=== PATIENT | female | born 1995 | race African-American/Black ===

== ENCOUNTER 2016-08-31 01:32 | Emergency (ER) | payer SELFPAY ==
--- NOTE | ~2016-08-31 | CT2 ---
[facility] A Service of [facility] & [facility] RADIOLOGY TEXT RESULTS PATIENT: ANG BEARD LOCATION: SED : [birth year] UNIT #: [id number] AGE: [address]: Andrew Benson MD SEX: F ORDER DR: [id number] [address] [address] [id number] E MR#: [id number] Acc #: [id number] NAME: ANG BEARD : 1995 SEX: F STUDY DATE/TIME: 08/31/2016 2:30 UNIT: SED ROOM: STUDY DESCRIPTION: CT Abd and Pelv W Cont Attending Physician: Andrew Benson M.D. Ordering Physician: Andrew Benson M.D. MEDICAL IMAGING REPORT This report is preliminary unless electronic signature is present. EXAM CT abdomen and pelvis with IV contrast COMPARISON None INDICATION 21-year-old female with right-sided pelvic pain tonight. Urinary incontinence for [address] exam was performed with one or more of the following radiation dose reduction techniques: automatic exposure control, adjustment of mA and/or kV according to patient size, and iterative reconstruction. FINDINGS Axial CT imaging of the abdomen and pelvis was performed after IV administration of 100 mL Isovue-370. Coronal and sagittal reformats were constructed. Thoracolumbar dextrocurvature perhaps reflecting scoliosis or positional in nature. No acute fractures or suspicious osseous lesions. No significant findings in the imaged lower chest. The liver, gallbladder, pancreas, spleen, adrenal glands and kidneys are within normal limits. No hydronephrosis or hydroureter. No renal or ureteral calculus. Urinary bladder is within normal limits. CT appearance of the uterus is unremarkable. No definite adnexal masses. There is a small amount free fluid, possibly physiologic in the pelvis. No evidence of bowel obstruction. The appendix is normal. No pneumoperitoneum. There is nonspecific fluid distension of the duodenum and proximal jejunum with tapering of the proximal jejunum to normal caliber. Proximal jejunum measures up to 2.9 cm at top limits of normal. Normal caliber of the abdominal aorta, with patency of its main branches. No evidence of venous STS. [facility] A Service of [facility] & [facility] RADIOLOGY TEXT RESULTS PATIENT: ANG BEARD LOCATION: SED : [birth year] UNIT #: [id number] AGE: [address]: Andrew Benson MD SEX: F ORDER DR: thrombosis. There are scattered mesenteric lymph nodes, measuring up to 7.0 mm short axis in the superior mesentery, not pathologically enlarged by CT size criteria and likely reactive. IMPRESSION 1. Small amount of free fluid the pelvis of uncertain etiology. This may possibly be physiologic. 2. Top normal caliber of fluid distended duodenum and the proximal jejunum without definite transition point. This may reflect normal peristalsis. Correlation is recommended to exclude any signs of possible obstruction which is thought unlikely but not entirely excluded. No other significant findings in the abdomen, pelvis or imaged lower chest. Dictated by... Justus Salazar M.D. THIS IS AN ELECTRONICALLY VERIFIED REPORT Justus Salazar M.D. at 09/02/2016 7:02 AM Angelo TD: 08/31/2016 09:11 JOB #: [id number] MEDICAL IMAGING REPORT
[~2016-08-31 01:32] MED LIST: LANTUS SOLOSTAR3 ML
[2016-08-31 01:50] LABS: BASOPHIL# 0.1 X10e3 (0-0.3); BASOPHIL% 0.9 % (0-2.5); EOSINOPHIL# 0.1 X10e3 (0-0.7); EOSINOPHIL% 1.2 % (0.0-7.0); HEMATOCRIT 36.3 % (35.0-45.0); HEMOGLOBIN 11.7 gm/dL (12.0-16.0); LYMPHOCYTE# 2.8 X10e3 (1.0-3.5); LYMPHOCYTE% 36.3 % (17.0-45.0); MEAN CELL VOLUME 76.4 FL (83-96); MEAN CORPUSCULAR HEMOGLOBIN 24.7 PG (28-34); MEAN CORPUSCULAR HGB CONC 32.3 g/dL (30-36); MEAN PLATELET VOLUME 10.4 FL (6.5-11.5); MONOCYTE# 0.8 X10e3 (0-1.0); MONOCYTE% 10.8 % (3.0-12.0); NEUTROPHIL# 3.9 X10e3 (1.5-7.1); NEUTROPHIL% 50.8 % (40-75); PLATELET COUNT 194 X10e3 (140-420); RED BLOOD COUNT 4.76 X10e (3.90-5.30); RED CELL DISTRIBUTION WIDTH 16.4 % (11.0-15.5); WHITE BLOOD COUNT 7.6 X10e3 (4.0-10.5)
[2016-08-31 01:51] LABS: DIFF IND NO
[2016-08-31 01:57] LABS: PROTHROMBIN TIME (PATIENT) 11.6 SECONDS (9.5-12.4)
[2016-08-31 02:04] LABS: PARTIAL THROMBOPLASTIN TIME 26.2 SECONDS (25.6-38.1)
[2016-08-31 02:05] LABS: ALBUMIN SERUM 4.4 g/dL (3.5-5.0); ALKALINE PHOSPHATASE 74 U/L (32-92); ALT (SGPT) 236 U/L (10-40); AST (SGOT) 257 U/L (10-42); BILIRUBIN,TOTAL 0.5 mg/dL (0.2-2.0); BLOOD UREA NITROGEN 11 mg/dL (9-23); BUN/CREATININE RATIO 18.33; CALCIUM SERUM 9.9 mg/dL (8.4-10.2); CARBON DIOXIDE 24 mmol/L (22-31); CHLORIDE 96 mmol/L (100-111); CREATININE SERUM 0.6 mg/dL (0.6-1.4); GLOM FILT RATE Estimated ABOVE60 mL/min (>60); GLUCOSE FASTING 449 mg/dL (70-110); POTASSIUM 4.1 mmol/L (3.5-5.1); SODIUM 131 mmol/L (135-145)
[2016-08-31 03:43] LABS: URINE SOURCE CLEAN CATCH
[2016-08-31 03:45] LABS: URINE APPEARANCE CLEAR; URINE BILIRUBIN NEG (NEG); URINE BLOOD NEG (NEG); URINE COLOR YELLOW; URINE GLUCOSE 300 MG/DL (NORM); URINE KETONE NEG (NEG); URINE LEUKOCYTE ESTERASE NEG (NEG); URINE NITRATE NEG (NEG); URINE PROTEIN NEG (NEG); URINE SPECIFIC GRAVITY <=1.005 (1.003-1.035); URINE UROBILINOGEN 0.2 MG/DL (NORM)
[2016-08-31 03:46] LABS: MICRO INDICATED? NO
== END 2016-08-31 04:16 | disposition home or self-care (01) ==
LOC: SED 01:32
DX: R10.31 Right lower quadrant pain (principal); E11.65 Type 2 diabetes mellitus with hyperglycemia; F17.200 Nicotine dependence, unspecified, uncomplicated; Z79.4 Long term (current) use of insulin
CPT/HCPCS: 74177; 80053; 81003; 82947; 84703; 85025; 85610; 85730; 96361; 96374; 96375; 99284; J2270; J2405; Q9967